=== PATIENT | male | born 1945 | race Caucasian/White ===

== ENCOUNTER 2025-05-24 16:13 | Inpatient (IN) | payer OTHER, MEDICARE ==
[~2025-05-24] VITALS: Ht 172.7 cm; Wt 90.5 kg
[2025-05-24] MEDS: MORPHINE SULFATE 4 MG/ML INJ (FOR IV/IM USE) IV ONE (17:22)
[2025-05-24] MEDS: ASPIRIN 325MG EC TABLET PO ONE (17:22)
[2025-05-24 17:26] LABS: BASOPHILS % 0.5 % (0.0-2.0); EOSINOPHILS % 0.6 % (0.0-5.0); HEMATOCRIT. 37.1 % (42.0-52.0); HEMOGLOBIN. 12.5 g/dL (14.0-18.0); LYMPHOCYTES % 10.8 % (20.0-50.0); MEAN PLATELET VOLUME 7.7 fl (7.4-10.4); MONOCYTES % 5.3 % (2.0-8.0); NEUTROPHILS % 82.8 % (40.0-76.0); PLATELET 198 x1000/uL (130-400); RED BLOOD CELL COUNT 4.16 mill/uL (4.7-6.1); RED CELL DISTRIBUTION WIDTH 14.5 % (11.6-14.6)
[2025-05-24 17:39] LABS: CREATININE 1.0 mg/dL (0.6-1.3); UREA NITROGEN BLOOD 15 mg/dL (9-23)
[2025-05-24 17:40] LABS: TROPONIN I HIGH SENSITIVITY 10 ng/L (3.0-53)
[2025-05-24 17:41] LABS: ASPARTATE AMINOTRANSFERASE 10 IU/L (<34); BILIRUBIN DIRECT 0.2 mg/dL (<=3.0); BILIRUBIN TOTAL 0.6 mg/dL (0.1-1.0); PROTEIN TOTAL 6.9 g/dL (6.0-8.3)
[2025-05-24 20:10] VITALS: BP 163/106; PULSE 96; RESP 19; TEMP 36.4; O2SAT 96
[2025-05-24] MEDS ORDERED: CLONIDINE 0.1MG TABLET PO PRN (21:30)
[2025-05-24] MEDS ORDERED: GUAIFENESIN 200MG/10ML SUGAR FREE UDC PO PRN (21:30)
[2025-05-24] MEDS ORDERED: NITROGLYCERIN 0.4MG TABLET SL SL PRN (21:30)
[2025-05-24] MEDS ORDERED: ACETAMINOPHEN 325MG TABLET PO PRN (21:30)
[2025-05-24] MEDS ORDERED: MAGNESIUM/ALUMINUM HYDROXIDE/SIMETHICONE 30ML UDC PO PRN (21:30)
[2025-05-24] MEDS ORDERED: ONDANSETRON HCL 4MG/2ML INJ IV PRN (21:30)
[2025-05-24] MEDS ORDERED: DOCUSATE SODIUM 100MG CAPSULE PO PRN (21:30)
[2025-05-24] MEDS ORDERED: IOHEXOL-350 100 ML BOTTLE ONE (22:35)
[2025-05-24] MEDS: MORPHINE SULFATE 2 MG/ML INJ (NOT FOR IM USE) IV NR (22:59)
[2025-05-24] MEDS: PANTOPRAZOLE SODIUM 40 MG/VIAL IV SCH (23:03)
[2025-05-24 23:07] VITALS: BP 163/106; PULSE 96; RESP 19; TEMP 36.4736
[2025-05-24] MEDS ORDERED: DEXTROSE 50% WATER 50ML SYRINGE IV PRN (23:45)
[2025-05-24] MEDS: SODIUM CHLORIDE 3% FOR INH 4ML NEB INH SCH (23:56)
[2025-05-24] MEDS: AMLODIPINE 5MG TABLET PO SCH (23:57)
[2025-05-25] VITALS (9 sets, daily range): BP systolic 96–129; BP diastolic 58–73; PULSE 68–82; RESP 18–20; TEMP 35.8–37; O2SAT 91–100
[2025-05-25 01:47] LABS: TROPONIN I HIGH SENSITIVITY 16 ng/L (3.0-53)
[2025-05-25] MEDS: ACETAMINOPHEN 325MG TABLET PO PRN (03:03)
[2025-05-25] MEDS: CEFTRIAXONE 1GM/50ML 50 ML IV SCH (03:47)
[2025-05-25] MEDS: IPRATROPIUM/ALBUTEROL 0.5-3(2.5)MG/3ML NEB HHN SCH (04:00)
[2025-05-25] MEDS ORDERED: FOLI-43 MT (05:39)
[2025-05-25] MEDS ORDERED: MAGN400T26 MT (05:39)
[2025-05-25] MEDS ORDERED: ASPI-1497 MT (05:39)
[2025-05-25] MEDS ORDERED: METO-539 MT (05:39)
[2025-05-25] MEDS ORDERED: ATOR-2 MT (05:39)
[2025-05-25] MEDS ORDERED: ALBU2.5V13 NEB (05:39)
[2025-05-25] MEDS ORDERED: UMEC1DIS INH (05:39)
[2025-05-25] MEDS ORDERED: NITR0.4T49 SL (05:39)
[2025-05-25] MEDS ORDERED: RANO10005 PO (05:39)
[2025-05-25] MEDS ORDERED: METF-1149 MT (05:39)
[2025-05-25] MEDS ORDERED: AMLO5TAB88 PO (05:39)
[2025-05-25] MEDS ORDERED: LEVO100T9 MT (05:39)
[2025-05-25] MEDS ORDERED: EZET10TA81 MT (05:39)
[2025-05-25] MEDS ORDERED: PANT40TA51 MT (05:39)
[2025-05-25] MEDS ORDERED: CLOP75TA33 PO (05:39)
[2025-05-25] MEDS ORDERED: ROFL500T MT (05:39)
[2025-05-25] MEDS ORDERED: SODI4VIA26 IH (05:39)
[2025-05-25] MEDS ORDERED: ISOS60TA76 MT (05:39)
[2025-05-25] MEDS ORDERED: ALBU18HF2 IH (05:39)
[2025-05-25 06:08] LABS: *AMPHETAMINES SCREEN URINE NEGATIVE (NEGATIVE); *BENZODIAZEPINES SCREEN URINE PRESUMPTIVE POSITIVE (NEGATIVE)
[2025-05-25 06:09] LABS: *BARBITURATES SCREEN URINE NEGATIVE (NEGATIVE); *COCAINE SCREEN URINE NEGATIVE (NEGATIVE); METHADONE URINE SCREEN NEGATIVE (NEGATIVE)
[2025-05-25 06:10] LABS: CANNABINOID URINE SCREEN NEGATIVE (NEGATIVE); ECSTASY MDMA SCREEN URINE NEGATIVE (NEGATIVE); OPIATES URINE SCREEN PRESUMPTIVE POSITIVE (NEGATIVE); PHENCYCLIDINE URINE SCREEN NEGATIVE (NEGATIVE)
[2025-05-25] MEDS: BLOOD SUGAR DIAGNOSTIC STRIP TEST SCH (06:30)
[2025-05-25] MEDS: LEVOTHYROXINE SODIUM 100MCG TABLET PO SCH (06:33)
[2025-05-25 07:35] LABS: BASOPHILS % 0.5 % (0.0-2.0); EOSINOPHILS % 1.2 % (0.0-5.0); HEMATOCRIT. 35.6 % (42.0-52.0); HEMOGLOBIN. 11.9 g/dL (14.0-18.0); LYMPHOCYTES % 17.9 % (20.0-50.0); MEAN PLATELET VOLUME 7.9 fl (7.4-10.4); MONOCYTES % 8.4 % (2.0-8.0); NEUTROPHILS % 72.0 % (40.0-76.0); PLATELET 189 x1000/uL (130-400); RED BLOOD CELL COUNT 3.97 mill/uL (4.7-6.1); RED CELL DISTRIBUTION WIDTH 14.6 % (11.6-14.6)
[2025-05-25] MEDS: INSULIN LISPRO 100 UNITS/ML SUBCUT SCH (07:40)
[2025-05-25 07:47] LABS: TROPONIN I HIGH SENSITIVITY 15 ng/L (3.0-53)
[2025-05-25 07:50] LABS: T4 FREE 1.19 ng/dL (0.89-1.76)
[2025-05-25 07:55] LABS: ASPARTATE AMINOTRANSFERASE 10 IU/L (<34); CREATININE 1.1 mg/dL (0.6-1.3)
[2025-05-25 07:56] LABS: UREA NITROGEN BLOOD 14 mg/dL (9-23)
[2025-05-25 07:58] LABS: BILIRUBIN DIRECT 0.3 mg/dL (<=3.0); BILIRUBIN TOTAL 0.6 mg/dL (0.1-1.0); PROTEIN TOTAL 6.3 g/dL (6.0-8.3)
[2025-05-25] MEDS: ISOSORBIDE MONONITRATE 60MG TABLET SR 24HR PO SCH (08:24)
[2025-05-25] MEDS: ASPIRIN 81MG TABLET PO SCH (08:24)
[2025-05-25] MEDS: RANOLAZINE 500 MG TAB.SR.12H PO SCH ×2 (08:25→21:08)
[2025-05-25] MEDS: MAGNESIUM OXIDE 400MG TABLET PO SCH (08:25)
[2025-05-25] MEDS: FOLIC ACID 1MG TABLET PO SCH (08:25)
[2025-05-25] MEDS: EZETIMIBE 10MG TABLET PO SCH (08:25)
[2025-05-25] MEDS: CLOPIDOGREL 75MG TABLET PO SCH (08:25)
[2025-05-25] MEDS: FUROSEMIDE 20MG/2ML VIAL IVP SCH (08:26)
[2025-05-25] MEDS ORDERED: AMLODIPINE 5MG TABLET PO SCH (09:00)
[2025-05-25 09:15] LABS: BG BASE EXCESS -1.7 mmol/L (-2.0-3.0); BG CARBOXYHEMOGLOBIN 2.0 % (0.5-1.5); BG DEOXYHEMOGLOBIN 5.7 % (0.0-5.0); BG FLOW(L/min) 3.00 L/min; BG FRACTION INSPIRED OXYGEN 32; BG HCO3 ACT 21.9 mmol/L (21.0-28.0); BG METHEMOGLOBIN 0.1 % (0.5-1.5); BG OXYGEN SATURATION 94.2 % (94.0-98.0); BG OXYHEMOGLOBIN 92.2 % (94.0-98.0); BG PCO2 34.4 mmHg (35.0-48.0); BG PH 7.422 (7.350-7.450); BG PO2 72.6 mmHg (83.0-108.0); BG SAMPLE SITE RIGHT BRACHIAL; BG TOTAL HEMOGLOBIN 15.9 g/dL (13.5-17.5); BG VENT MODE NASAL CANNULA
[2025-05-25] MEDS: ENOXAPARIN 80MG/0.8ML SYR SUBCUT SCH (12:38)
[2025-05-25 13:37] LABS: INR 1.1
[2025-05-25 13:50] LABS: FOLIC ACID (FOLATE) SERUM > 20.00 ng/mL (>5.38); VITAMIN B12 SERUM 690 pg/mL (211-911)
[2025-05-25] MEDS: ENOXAPARIN 40MG/0.4ML SYR SUBCUT SCH (14:31)
[2025-05-25 15:17] LABS: CLARITY URINE CLEAR (CLEAR); COLOR URINE YELLOW (YELLOW); GLUCOSE URINE 2+ (NEGATIVE); KETONES URINE NEGATIVE (NEGATIVE); LEUKOCYTE ESTERASE URINE NEGATIVE (NEGATIVE); NITRITE URINE NEGATIVE (NEGATIVE); OCCULT BLOOD URINE NEGATIVE (NEGATIVE); PH URINE 5.0 (4.5-8.0); PROTEIN URINE NEGATIVE (NEGATIVE); SPECIFIC GRAVITY URINE 1.015 (1.005-1.030); UROBILINOGEN URINE 0.2 E.U./dL (0.2-1.0)
[2025-05-25] MEDS: MAGNESIUM 4 G PREMIX 100 ML IV NR (15:22)
[2025-05-25 15:57] LABS: BACTERIA URINE NONE SEEN; RBC URINE NONE SEEN /hpf (0-2); SQUAMOUS EPITHELIAL CELL URINE NONE SEEN /lpf (RARE/1+); WBC URINE 0-2 /hpf (0-2)
[2025-05-25] MEDS: ATORVASTATIN CALCIUM 40MG TABLET PO SCH (21:08)
[2025-05-25] MEDS ORDERED: ENOXAPARIN 100MG/ML SYR SUBCUT SCH (23:00)
[2025-05-25] MEDS: IPRATROPIUM/ALBUTEROL 0.5-3(2.5)MG/3ML NEB HHN PRN (23:55)
[2025-05-26] VITALS: BP 113/60; PULSE 78; RESP 19; TEMP 36.9; O2SAT 96
[2025-05-26 04:00] VITALS: BP 100/51; PULSE 84; RESP 19; TEMP 36.8; O2SAT 97
[2025-05-26 07:53] VITALS: PULSE 75; RESP 16
[2025-05-26 07:58] VITALS: BP 124/72; PULSE 78; RESP 17; TEMP 36.9; O2SAT 97
[2025-05-26 09:03] LABS: LDL CHOLESTEROL 42 mg/dL (5-100); TRIGLYCERIDE 112 mg/dL (0-150); TROPONIN I HIGH SENSITIVITY 10 ng/L (3.0-53)
[2025-05-26 09:05] LABS: CREATININE 0.9 mg/dL (0.6-1.3); UREA NITROGEN BLOOD 14 mg/dL (9-23)
[2025-05-26] MEDS: ISOSORBIDE MONONITRATE 30MG TABLET SR 24HR PO SCH (09:23)
[2025-05-26 10:28] VITALS: BP 124/72; PULSE 78; RESP 18; TEMP 98.4
== END 2025-05-26 12:00 | disposition home or self-care (01) | DRG 193 ==
LOC: ER 16:13 → 8WST 18:52
PROVIDERS: ADMIT Internal Medicine; ATTEND Internal Medicine
DX: J18.9 Pneumonia, unspecified organism (principal); I50.43 Acute on chronic combined systolic (congestive) and diastolic (congestive) heart failure; I11.0 Hypertensive heart disease with heart failure; E03.9 Hypothyroidism, unspecified; E11.65 Type 2 diabetes mellitus with hyperglycemia; E78.5 Hyperlipidemia, unspecified; I45.10 Unspecified right bundle-branch block; I48.91 Unspecified atrial fibrillation; J44.9 Chronic obstructive pulmonary disease, unspecified; I25.10 Atherosclerotic heart disease of native coronary artery without angina pectoris; Z79.02 Long term (current) use of antithrombotics/antiplatelets; Z79.82 Long term (current) use of aspirin; Z79.899 Other long term (current) drug therapy; Z86.73 Personal history of transient ischemic attack (TIA), and cerebral infarction without residual deficits; Z87.891 Personal history of nicotine dependence; Z95.1 Presence of aortocoronary bypass graft; Z95.5 Presence of coronary angioplasty implant and graft; I25.2 Old myocardial infarction
CPT/HCPCS: 36415; 36600; 71045; 71275; 80048; 80061; 80076; 80305; 81003; 82375; 82550; 82607; 82746; 82805; 82962; 83036; 83540; 83550; 83605; 83735; 83880; 84145; 84439; 84443; 84484; 85025; 85379; 87070; 93005; 93306; 93970; 94070; 94640; 94664; 98960; 99285; J0696; J1650; J1815; J1938; J2270; J2470; J3475; Q9967